=== PATIENT | female | born 1940 | race Caucasian/White ===

== ENCOUNTER 2017-04-18 20:20 | Inpatient (IN) | payer MEDICARE ==
--- NOTE | 2017-04-18 20:56 | ED PDOC ---
Lower Extremity Pain/Injury Time Seen by Provider: 04/18/17 20:55 Chief Complaint (Nursing): Lower Extremity Problem/Injury Chief Complaint (Provider): right leg pain History Per: Patient Additional Complaint(s): 76-year-old female with history of high blood pressure presents to emergency department with pain to the right hip status post trip and fall. Patient was at a [employer] dancing when she tripped and injured right hip and femur. Patient denies head injury or loss of consciousness. She denies dizziness or syncope prior to fall. Patient has been able to gingerly bear weight on affected leg since it injury occurred. She was brought here by a friend who drove her. Past Medical History Reviewed: Historical Data, Nursing Documentation, Vital Signs Vital Signs: Last Vital Signs Temp 97.0 F L 04/18/17 20:27 Pulse 74 04/18/17 20:27 Resp 16 04/18/17 20:27 BP 139/72 04/18/17 20:27 Pulse Ox 100 04/18/17 20:27 - Medical History PMH: HTN - Surgical History Surgical History: Appendectomy Other surgeries: double mastectomy, right wrist fracture repair, lung lobectomy - Family History Family History: States: No Known Family Hx - Living Arrangements Living Arrangements: With Family - Social History Current smoker - smoking cessation education provided: No Ex-Smoker (has not smoked in the last 12 months): Yes (quit in 1991) Alcohol: None Drugs: Denies - Home Medications Home Medications: Ambulatory Orders Medication Instructions Recorded Fexofenadine/Pseudoephedrine 1 tab PO DAILY 04/19/17 [Kelsea-D 24 Hour Tablet] Levothyroxine [Synthroid] 200 mcg PO DAILY 04/19/17 Olmesartan/Amlodipin/Hcthiazid 1 tab PO DAILY 04/19/17 [Tribenzor 40-10-25 mg Tablet] - Allergies Allergies/Adverse Reactions: Allergies Allergy/AdvReac Type Severity Reaction Status Date / Time No Known Allergies Allergy Verified 04/18/17 20:27 Wells Criteria for PE - Wells Criteria for Pulmonary Embolism Clinical Signs and Symptoms of DVT: No P.E is #1 Diagnosis, or Equally Likely: No Heart Rate >100: No Immobilization at least 3 days;Surgery previous 4 weeks: No Previous, objectively diagnosed PE or DVT: No Hemoptysis: No Malignancy w/treatment within 6 months, or palliative: No Total Score: 0 Review of Systems ROS Statement: Except As Marked, All Systems Reviewed And Found Negative Musculoskeletal: Positive for: Other (right hip pain s/p trip and fall) Neurological: Positive for: Other (denies dizziness or syncope prior to fall, denies head injury or LOC) Physical Exam - Reviewed Nursing Documentation Reviewed: Yes Vital Signs Reviewed: Yes - Physical Exam Appears: Positive for: Well, Non-toxic, No Acute Distress Skin: Negative for: Rash Eye Exam: Positive for: Normal appearance Neck: Positive for: Normal Cardiovascular/Chest: Positive for: Regular Rate, Rhythm Respiratory: Positive for: Normal Breath Sounds Back: Negative for: Vertebral Tenderness Extremity: Positive for: Other (Tenderness to right lateral hip and proximal femur region, full range of motion with pain, normal distal sensation right lower extremity) Neurologic/Psych: Positive for: Alert, Oriented - Laboratory Results Result Diagrams: 04/18/17 23:30 04/18/17 23:30 - ECG Interpretation Of ECG: SR 77 bpm with PAC's, reviewed by PA and ED attending O2 Sat by Pulse Oximetry: 100 Pulse Ox Interpretation: Normal - Other Rad Pelvis, right hip and femur X-Ray: Interpreted by Me, Viewed By Me X-Ray Interpretation: ? right pelvic fracture, CT ordered CT pelvis X-Ray: Read By Radiologist X-Ray Interpretation: right femoral neck fracture Bedside chest X-Ray: Interpreted by Me, Viewed By Me X-Ray Interpretation: no acute finding Medical Decision Making Medical Decision Makin76 year old with right hip pain s/p trip and fall Plan: X-ray right hip, femur and pelvis PO motrin X-ray shows ? fracture, CT pelvis ordered. CT shows right femoral neck fracture. Case was d/w ortho professional bass fisherman, Dr. Woodruff who will see patient in AM. Dr. Green hospitalist to admit patient. Patient is aware of and agrees with admission. Disposition - Clinical Impression Clinical Impression: Hip fracture, right - Patient ED Disposition Is Patient to be Admitted: Yes - Disposition Disposition Time: 01:35 Condition: FAIR - Pt Status Changed To: Hospital Disposition Of: Inpatient - Admit Certification Admit to Inpatient:: After my assessment, the patient will require hospitalization for at least two midnights. This is because of the severity of symptoms shown, intensity of services needed, and/or the medical risk in this patient being treated as an outpatient. - POA Present On Arrival: None Results - Lab Results Lab Results: 04/18/17 04/18/17 04/18/17 23:30 23:30 23:30 WBC 14.2 H RBC 4.18 Hgb 11.8 L Hct 35.7 MCV 85.3 MCH 28.1 MCHC 33.0 RDW 13.1 Plt Count 230 MPV 7.4 Neut % (Auto) 80.3 H Lymph % (Auto) 14.0 L [place] % (Auto) 5.3 Eos % (Auto) 0.1 Baso % (Auto) 0.3 Neut # 11.4 H Lymph # 2.0 [place] # 0.8 Eos # 0.0 Baso # 0.0 PT 11.2 INR 1.1 APTT 27.0 Sodium 141 Potassium 3.8 Chloride 106 Carbon Dioxide 23 Anion Gap 15 BUN 17 Creatinine 0.7 Est GFR ( Amer) > 60 Est GFR (Non-Af Amer) > 60 Random Glucose 104 Calcium 10.0 Total Bilirubin 0.6 AST 35 ALT 37 Alkaline Phosphatase 70 Total Protein 7.6 Albumin 4.2 Globulin 3.3 Albumin/Globulin Ratio 1.3 Blood Type Antibody Screen BBK History Checked 04/18/17 23:18 WBC RBC Hgb Hct MCV MCH MCHC RDW Plt Count MPV Neut % (Auto) Lymph % (Auto) [place] % (Auto) Eos % (Auto) Baso % (Auto) Neut # Lymph # [place] # Eos # Baso # PT INR APTT Sodium Potassium Chloride Carbon Dioxide Anion Gap BUN Creatinine Est GFR ( Amer) Est GFR (Non-Af Amer) Random Glucose Calcium Total Bilirubin AST ALT Alkaline Phosphatase Total Protein Albumin Globulin Albumin/Globulin Ratio Blood Type A POSITIVE Antibody Screen Negative BBK History Checked No verified bt
--- NOTE | 2017-04-18 22:48 | CT ---
EXAM: CT Pelvis Without Intravenous Contrast CLINICAL HISTORY: 76 years old, female; Injury or trauma; Fall; Initial encounter; Blunt trauma (contusions or hematomas); Right; Hip; Additional info: Fall, assess for right hip/pelvis fractures TECHNIQUE: Axial computed tomography images of the pelvis without intravenous contrast. All CT scans at this facility use one or more dose reduction techniques, viz.: automated exposure control; ma/kV adjustment per patient size (including targeted exams where dose is matched to indication; i.e. head); or iterative reconstruction technique. Coronal and sagittal reformatted images were created and reviewed. COMPARISON: No relevant prior studies available. FINDINGS: Bones/joints: Nondisplaced, mildly impacted fracture RIGHT femoral neck. Early degenerative changes of hip joints. Facet osteoarthrosis within lower lumbar spine. Partial ankylosis LEFT sacroiliac joint. No dislocation. Soft tissues: Tiny umbilical hernia containing fat. Stomach and bowel: Scattered diverticula within colon. IMPRESSION: 1. RIGHT femoral neck fracture. 2. Incidental/non-acute findings are described above.
[2017-04-18] MEDS ORDERED: Sodium Chloride 0.9% 1,000 ML IV STA (23:04)
--- NOTE | 2017-04-18 23:12 | CP.PCM.HP ---
History of Present Illness - History of Present Illness History of Present Illness: PCP: Any Butt MD Chief complaint: Fall/Right hip pain HPI: 76 years old female with hx of HTN, hypothyroidism, breast and lung Cancer s/p Radiotherapy. She was brought to the ED with pain to the right hip after she slipped and fell while dancing. No dizziness nor headache, No LOC. No nausea nor vomits, diarrhea nor urinary symptoms. She was able to bear weight on the right hip after fall. PMH: HTN; Hypothyroidism; Lung cancer; Breast cancer; PSH: Bilateral Mastectomy; Lobectomy of the lung; ORIF for fractured right wrist. SH: No illegal drug use; no Smoking; No Alcohol use; live with family FH: No known family hx Allergies: NKDA Medications: Unknown medication for HTN and for Hypothyroidism Present on Admission - Present on Admission Any Indicators Present on Admission: No History of DVT/PE: No History of Uncontrolled Diabetes: No Urinary Catheter: No Decubitus Ulcer Present: No Review of Systems - Constitutional Constitutional: absent: Anorexia, Chills, Fatigue, Fever, Headache - EENT Eyes: Requires Corrective Lenses. absent: Diplopia, Floaters, Photophobia Ears: absent: Decreased Hearing, Ear Discharge, Ear Pain, Tinnitus Nose/Mouth/Throat: absent: Epistaxis, Nasal Congestion, Sinus Pain, Sinus Pressure - Cardiovascular Cardiovascular: absent: Chest Pain, Dyspnea, Edema - Respiratory Respiratory: absent: Cough, Dyspnea, Wheezing, Chest Congestion - Gastrointestinal Gastrointestinal: absent: Constipation, Diarrhea, Nausea, Vomiting - Genitourinary Genitourinary: absent: Dysuria, Flank Pain, Hematuria, Urinary Frequency - Musculoskeletal Musculoskeletal: Arthralgias. absent: Muscle Weakness, Myalgias Additional comments: Right hip pain - Integumentary Integumentary: absent: Pruritus, Rash, Skin Ulcer, Sores, Striae, Swelling - Neurological Neurological: absent: Confusion, Dizziness, Focal Weakness, Headaches - Psychiatric Psychiatric: absent: Anxiety, Depression, Panic Attacks - Endocrine Endocrine: absent: Palpitations, Polydipsia, Polyphagia, Polyuria - Hematologic/Lymphatic Hematologic: absent: Easy Bleeding, Easy Bruising Past Patient History - Past Social History Smoking Status: Never Smoked Chewing Tobacco Use: No Cigar Use: No Alcohol: None Drugs: Denies Home Situation {Lives}: With Family - CARDIAC Hx Hypertension: Yes - PULMONARY Hx Respiratory Disorders: No - NEUROLOGICAL Hx Neurological Disorder: No - HEENT Hx HEENT Problems: No - RENAL Hx Chronic Kidney Disease: No - ENDOCRINE/METABOLIC Hx Endocrine Disorders: No - HEMATOLOGICAL/ONCOLOGICAL Hx Blood Disorders: No - INTEGUMENTARY Hx Dermatological Problems: No - MUSCULOSKELETAL/RHEUMATOLOGICAL Hx Musculoskeletal Disorders: No - GASTROINTESTINAL Hx Gastrointestinal Disorders: No - GENITOURINARY/GYNECOLOGICAL Hx Genitourinary Disorders: No - PSYCHIATRIC Hx Psychophysiologic Disorder: No Hx Substance Use: No - SURGICAL HISTORY Hx Appendectomy: Yes Hx Mastectomy: Yes (Bilateral) Hx Orthopedic Surgery: Yes (Right wrist ORIF) Other/Comment: Lobectomy due to lung cancer - ANESTHESIA Hx Anesthesia: Yes Hx Anesthesia Reactions: No Meds Allergies/Adverse Reactions: Allergies Allergy/AdvReac Type Severity Reaction Status Date / Time No Known Allergies Allergy Verified 04/18/17 20:27 Physical Exam - Constitutional Appears: No Acute Distress - Head Exam Head Exam: ATRAUMATIC, NORMAL INSPECTION, NORMOCEPHALIC - Eye Exam Eye Exam: EOMI, Normal appearance Pupil Exam: NORMAL ACCOMODATION, PERRL - ENT Exam ENT Exam: Mucous Membranes Moist, Normal Exam, Normal External Ear Exam, Normal Oropharynx - Neck Exam Neck exam: Positive for: Full Rom, Normal Inspection. Negative for: Lymphadenopathy, Tenderness - Respiratory Exam Respiratory Exam: Clear to Auscultation Bilateral. absent: Rales, Rhonchi, Wheezes - Cardiovascular Exam Cardiovascular Exam: REGULAR RHYTHM, RRR, +S1, +S2. absent: Gallop, JVD - GI/Abdominal Exam GI & Abdominal Exam: Soft. absent: Mass, Organomegaly, Tenderness - Rectal Exam Rectal Exam: Deferred - Extremities Exam Extremities exam: Positive for: normal inspection Additional comments: Pain at the anterior-lateral up0per right thigh. - Back Exam Back exam: NORMAL INSPECTION. absent: CVA tenderness (L), CVA tenderness (R) - Neurological Exam Neurological exam: Alert, CN II-XII Intact, Oriented x3, Reflexes Normal - Psychiatric Exam Psychiatric exam: Normal Affect, Normal Mood - Skin Skin Exam: Dry, Intact, Normal Color, Warm Results - Vital Signs Recent Vital Signs: Last Vital Signs Temp 97.0 F L 04/18/17 20:27 Pulse 74 04/18/17 20:27 Resp 16 04/18/17 20:27 BP 139/72 04/18/17 20:27 Pulse Ox 100 04/18/17 22:58 - Labs Result Diagrams: 04/18/17 23:30 04/18/17 23:30 - EKG Data EKG comments: NSR with PAC 77/min - Imaging and Cardiology Chest x-ray Status: Image reviewed by me Additional comment: No Infiltrate CT Pelvis Status: Report reviewed by me Additional comment: FINDINGS: Bones/joints: Nondisplaced, mildly impacted fracture RIGHT femoral neck. Early degenerative changes of hip joints. Facet osteoarthrosis within lower lumbar spine. Partial ankylosis LEFT sacroiliac joint. No dislocation. Soft tissues: Tiny umbilical hernia containing fat. Stomach and bowel: Scattered diverticula within colon. IMPRESSION: 1. RIGHT femoral neck fracture. 2. Incidental/non-acute findings are described above. Assessment & Plan - Assessment and Plan (Free Text) Assessment: #. Right Femoral neck Fracture #. leukocytosis #. Hypothyroidism #. HTN #. Diverticulosis #. osteoarthritis of lumbar spine. Plan: 76 years old female with hx of HTN, hypothyroidism, breast and lung Cancer s/p Radiotherapy. She was brought to the ED with pain to the right hip after she slipped and fell while dancing. No dizziness nor headache, No LOC. No nausea nor vomits, diarrhea nor urinary symptoms. She was able to bear weight on the right hip after fall. #. Right Femoral neck Fracture - Consult Dr Macdonald Orthopedic - NPO -Pain medication with Toradol - IV fluid with NS at 100mls/hr #. Neutrophilic leukocytosis reactive - Follow CBC #. Hypothyroidism. Patient does not remember the concentration of Levothyroxin that she takes daily. - Follow TSH #. HTN - Follow blood pressures #. Diverticulosis without diverticulitis #. osteoarthritis of lumbar spine. - Pain management #. DVT Prophylaxis with SCD #. Code Status: Full After review of this patient's laboratory, Radiological, Hemodynamic and Medical records I am clearing this patient for surgery with mild risk for cardiopulmonary events. Casimiro Green MD - Date & Time Date: 04/18/17 Time: 23:12
[2017-04-18 23:38] LABS: BASO % 0.3 % (0.0-2.0); EOS % 0.1 % (0.0-4.0); HEMATOCRIT 35.7 % (34.0-47.0); MEAN CELL VOLUME 85.3 fl (81.0-99.0); MEAN CORPUSCULAR HEMOGLOBIN 28.1 pg (27.0-31.0); MEAN PLATELET VOLUME 7.4 fl (7.2-11.7); MONO # 0.8 K/uL (0.0-0.8); MONO % 5.3 % (0.0-10.0); NEUT # 11.4 K/uL (1.8-7.0); NEUT % 80.3 % (50.0-75.0); RED CELL DISTRIBUTION WIDTH 13.1 % (11.5-14.5); WHITE BLOOD COUNT 14.2 K/uL (4.8-10.8)
[2017-04-18 23:44] LABS: ALB/GLOB RATIO 1.3 (1.0-2.1); ALKALINE PHOSPHATASE 70 U/L (38-126); ALT/SGPT 37 U/L (9-52); AST/SGOT 35 U/L (14-36); BILIRUBIN,TOTAL 0.6 mg/dl (0.2-1.3); BLOOD UREA NITROGEN 17 mg/dl (7-17); CARBON DIOXIDE 23 mmol/L (22-30); CHLORIDE 106 mmol/L (98-107); GFR AFRICAN-AMERICAN > 60; GLUCOSE,RANDOM 104 mg/dL (65-105); POTASSIUM 3.8 MMOL/L (3.6-5.0); SODIUM 141 mmol/l (132-148); TOTAL PROTEIN 7.6 G/DL (6.3-8.2)
[2017-04-19] MEDS: Sodium Chloride 0.9% 1,000 ML IV SCH ×2 (02:19→20:00)
[2017-04-19 08:58] LABS: BASO % 0.6 % (0.0-2.0); EOS % 0.6 % (0.0-4.0); HEMATOCRIT 34.7 % (34.0-47.0); LYMPH # 1.4 K/uL (1.0-4.3); LYMPH % 18.1 % (20.0-40.0); MEAN CORPUSCULAR HEMOGLOBIN 28.5 pg (27.0-31.0); MEAN CORPUSCULAR HGB CONC 33.1 g/dL (33.0-37.0); MEAN PLATELET VOLUME 7.5 fl (7.2-11.7); MONO # 0.6 K/uL (0.0-0.8); MONO % 8.1 % (0.0-10.0); NEUT # 5.5 K/uL (1.8-7.0); NEUT % 72.6 % (50.0-75.0); WHITE BLOOD COUNT 7.5 K/uL (4.8-10.8)
--- NOTE | 2017-04-19 09:31 | RAD ---
HISTORY: admit COMPARISON: No prior. FINDINGS: LUNGS: No active pulmonary disease. PLEURA: No significant pleural effusion identified, no pneumothorax apparent. CARDIOVASCULAR: Normal. OSSEOUS STRUCTURES: Minor multilevel degenerative spondylosis of the thoracic spine degenerative changes both shoulder girdles. VISUALIZED UPPER ABDOMEN: Normal. OTHER FINDINGS: None. IMPRESSION: No acute infiltrates.
--- NOTE | 2017-04-19 10:14 | CP.PCM.CON ---
History of Present Illness - History of Present Illness History of Present Illness: Ortho Consult Note - Dr. Macdonald 76 year old female patient with PMH HTN, hypothyroidism, breast and lunch cancer seen at bedside for right femoral neck fracture. Patient states she was taken to the ED by her friend after she fell while dancing. Patient admits that she was able to bear weight with assistance, however only for a few steps. Patient admits to mild pain to her right hip, well managed my pain medication. Patient denies LOC. Patient states she lives on the 4th floor of a building with no elevators and is concerned regarding period of NWB. Patient is aware she will go to the OR today for right hip surgery. NPO status confirmed. Patient denies N/V/F/D/C/SOB. No other complaints at this time. PMH: HTN; Hypothyroidism; Lung cancer; Breast cancer; PSH: Bilateral Mastectomy; Lobectomy of the lung; ORIF for fractured right wrist. SH: No illegal drug use; no Smoking; No Alcohol use; live with family FH: Noncontributory to chief complaint Meds: See med list All: NKDA Review of Systems - Review of Systems All systems: reviewed and no additional remarkable complaints except (as per HPI ) - Constitutional Constitutional: As Per HPI, Weakness. absent: Chills, Fatigue, Fever - EENT Eyes: absent: Blind Spots, Blurred Vision, Diplopia, Loss of Vision Ears: absent: Decreased Hearing, Ear Pain, Tinnitus Nose/Mouth/Throat: absent: Nose Pain, Dental Pain, Throat Swelling, Facial Pain , Neck Pain - Cardiovascular Cardiovascular: absent: Edema, Leg Edema, Leg Ulcers, Pedal Edema, Radiating Pain - Respiratory Respiratory: absent: Cough, Dyspnea - Gastrointestinal Gastrointestinal: absent: Abdominal Pain, Change in Bowel Habits, Cramping, Diarrhea, Loose Stools, Nausea - Genitourinary Genitourinary: absent: Dysuria, Flank Pain, Hematuria - Musculoskeletal Musculoskeletal: As Per HPI, Abnormal Gait, Limited Range of Motion, Stiffness. absent: Numbness, Radiating Pain into Limb, Tingling - Integumentary Integumentary: absent: Change in Pigmentation, Erythema, Non-Healing Lesions, Pruritus, Rash, Skin Pain, Unusual Bruising - Neurological Neurological: absent: Confusion, Numbness, Memory Loss, Sensory Deficit, Syncope , Vertigo, Weakness - Psychiatric Psychiatric: absent: Anxiety, Behavioral Changes, Confusion, Depression, Memory Loss, Paranoia - Endocrine Endocrine: absent: Palpitations, Polydipsia, Polyphagia, Polyuria - Hematologic/Lymphatic Hematologic: absent: Easy Bleeding, Easy Bruising Past Patient History - Past Medical History & Family History Past Medical History?: Yes - Past Social History Smoking Status: Never Smoked Chewing Tobacco Use: No Cigar Use: No Alcohol: None Drugs: Denies Home Situation {Lives}: With Family - CARDIAC Hx Hypertension: Yes - PULMONARY Hx Respiratory Disorders: No - NEUROLOGICAL Hx Neurological Disorder: No - HEENT Hx HEENT Problems: No - RENAL Hx Chronic Kidney Disease: No - ENDOCRINE/METABOLIC Hx Endocrine Disorders: No - HEMATOLOGICAL/ONCOLOGICAL Hx Blood Disorders: No - INTEGUMENTARY Hx Dermatological Problems: No - MUSCULOSKELETAL/RHEUMATOLOGICAL Hx Musculoskeletal Disorders: No - GASTROINTESTINAL Hx Gastrointestinal Disorders: No - GENITOURINARY/GYNECOLOGICAL Hx Genitourinary Disorders: No - PSYCHIATRIC Hx Psychophysiologic Disorder: No Hx Substance Use: No - SURGICAL HISTORY Hx Appendectomy: Yes Hx Mastectomy: Yes (Bilateral) Hx Orthopedic Surgery: Yes (Right wrist ORIF) Other/Comment: Lobectomy due to lung cancer - ANESTHESIA Hx Anesthesia: Yes Hx Anesthesia Reactions: No Meds Allergies/Adverse Reactions: Allergies Allergy/AdvReac Type Severity Reaction Status Date / Time No Known Allergies Allergy Verified 04/18/17 20:27 - Medications Medications: Current Medications Sodium Chloride (Sodium Chloride 0.9%) 1,000 mls @ 100 mls/hr IV .Q10H NAKIA Stop: 04/20/17 00:00 Last Admin: 04/19/17 02:19 Dose: 100 mls/hr Ketorolac Tromethamine (Toradol) 15 mg IVP Q6 PRN PRN Reason: Pain, moderate (4-7) Ketorolac Tromethamine (Toradol) 30 mg IVP Q6 PRN PRN Reason: Pain, severe (8-10) Last Admin: 04/19/17 04:25 Dose: 30 mg Physical Exam - Constitutional Appears: Well, Non-toxic, No Acute Distress - Head Exam Head Exam: ATRAUMATIC, NORMAL INSPECTION, NORMOCEPHALIC - Eye Exam Eye Exam: EOMI Pupil Exam: NORMAL ACCOMODATION, PERRL - ENT Exam ENT Exam: Mucous Membranes Moist, Normal Exam, Normal External Ear Exam - Neck Exam Neck exam: Positive for: Normal Inspection - Respiratory Exam Respiratory Exam: Clear to Auscultation Bilateral, NORMAL BREATHING PATTERN - Cardiovascular Exam Cardiovascular Exam: REGULAR RHYTHM, +S1, +S2. absent: Gallop, JVD - GI/Abdominal Exam GI & Abdominal Exam: Soft. absent: Organomegaly, Tenderness - Rectal Exam Rectal Exam: Deferred - Exam Exam: NORMAL INSPECTION. absent: Bladder Distension - Extremities Exam Additional comments: Tenderness to palpation right hip and anterolateral proximal thigh - Back Exam Back exam: NORMAL INSPECTION - Neurological Exam Neurological exam: Alert, Oriented x3 - Psychiatric Exam Psychiatric exam: Normal Affect, Normal Mood - Skin Skin Exam: Intact, Normal Color, Warm Results - Vital Signs Recent Vital Signs: Last Vital Signs Temp 98.3 F 04/19/17 07:54 Pulse 91 H 04/19/17 07:54 Resp 20 04/19/17 07:54 BP 133/73 04/19/17 07:54 Pulse Ox 95 04/19/17 07:54 - Labs Result Diagrams: 04/19/17 08:10 04/18/17 23:30 Labs: Laboratory Results - last 24 hr 04/19/17 04/19/17 08:10 08:10 WBC 7.5 RBC 4.03 Hgb 11.5 L Hct 34.7 MCV 86.0 MCH 28.5 MCHC 33.1 RDW 13.0 Plt Count 211 MPV 7.5 Neut % (Auto) 72.6 Lymph % (Auto) 18.1 L [place] % (Auto) 8.1 Eos % (Auto) 0.6 Baso % (Auto) 0.6 Neut # 5.5 Lymph # 1.4 [place] # 0.6 Eos # 0.0 Baso # 0.0 TSH 3rd Generation < 0.02 L Assessment & Plan - Assessment and Plan (Free Text) Assessment: 76 year old female patient with right femoral neck fracture secondary to mechanical fall Plan: Patient seen and evaluated at bedside Discussed with attending, Dr. Macdonald Chart, labs, vitals reviewed Pelvis CT reviewed: right femoral neck fracture NPO status confirmed Continue pain mgmt per medicine To OR today for R hip pinning Will continue to follow patient while in house
--- NOTE | 2017-04-19 11:02 | CP.PCM.PN ---
Subjective - Date & Time of Evaluation Date of Evaluation: 04/19/17 Time of Evaluation: 10:10 - Subjective Subjective: This is a 76 year old female with past medical history of hypertension, hypothyroidism, breast cancer, and lung cancer. She was out dancing last night and fell. The patient was found to have a right femoral neck fracture. She is currently NPO for surgery with Dr. Macdonald later today. She currently states that her pain is under control. She has no c/o at this time. She denies any c/p, shortness of breath, n/v/d. Objective - Vital Signs/Intake and Output Vital Signs (last 24 hours): Temp Pulse Resp BP Pulse Ox 98.3 F 91 H 20 133/73 95 04/19/17 07:54 04/19/17 07:54 04/19/17 07:54 04/19/17 07:54 04/19/17 07:54 - Medications Medications: Current Medications Home Med (Fexofenadine/Pseudoephedrine [Kelsea-D 24 Hour Tablet]) 1 tab PO DAILY NAKIA Home Med (Olmesartan/Amlodipin/Hcthiazid [Tribenzor 40-10-25 Mg Tablet]) 1 tab PO DAILY NAKIA Sodium Chloride (Sodium Chloride 0.9%) 1,000 mls @ 100 mls/hr IV .Q10H NAKIA Stop: 04/20/17 00:00 Last Admin: 04/19/17 02:19 Dose: 100 mls/hr Ketorolac Tromethamine (Toradol) 15 mg IVP Q6 PRN PRN Reason: Pain, moderate (4-7) Ketorolac Tromethamine (Toradol) 30 mg IVP Q6 PRN PRN Reason: Pain, severe (8-10) Last Admin: 04/19/17 04:25 Dose: 30 mg - Labs Labs: 04/19/17 08:10 PT 11.2 Seconds (9.8-13.1) 04/18/17 23:30 INR 1.1 (0.9-1.2) 04/18/17 23:30 APTT 27.0 Seconds (25.6-37.1) 04/18/17 23:30 - Constitutional Appears: Well, No Acute Distress - Head Exam Head Exam: ATRAUMATIC, NORMAL INSPECTION, NORMOCEPHALIC - Neck Exam Neck Exam: Normal Inspection - Respiratory Exam Respiratory Exam: Clear to Ausculation Bilateral, NORMAL BREATHING PATTERN - Cardiovascular Exam Cardiovascular Exam: REGULAR RHYTHM, +S1, +S2 - GI/Abdominal Exam GI & Abdominal Exam: Soft, Normal Bowel Sounds. absent: Tenderness - Extremities Exam Extremities Exam: Normal Capillary Refill, Normal Inspection. absent: Joint Swelling, Pedal Edema Additional comments: Tenderness to palpation of the right hip. - Skin Skin Exam: Dry, Intact, Normal Color, Warm Assessment and Plan - Assessment and Plan (Free Text) Assessment: 1) Right femoral neck fracture 2) History of hypothyroidism, now appears to have been overcorrected with Synthroid 3) Hypertension, well controlled 4) Diverticulosis 5) Osteoarthritis of the lumbar spine 6) Leukocytosis is resolved 7) Seasonal allergies Plan: - NPO status for surgery today with Dr. Macdonald - Continue pain management with Toradol PRN for pain - Continue IV maintenance fluids with NS at 100 cc/hour - Hold Synthroid - Continue DVT prophylaxis with SCDs, start anticoagulation tomorrow AM after surgery with Lovenox - Restart her home Kelsea and Tribenzor tomorrow AM after surgery - Full code status
--- NOTE | 2017-04-19 11:16 | RAD ---
PROCEDURE: Right femur dated 04/18/2017. HISTORY: trauma COMPARISON: Correlation/ comparison made with concurrent radiographs of the pelvis and right hip TECHNIQUE: AP and lateral views of the right femur performed FINDINGS: Current study reveals a subcapital fracture of the of the right femoral neck with what appears represent impaction of fragments. IMPRESSION: There is a subcapital fracture with impaction of fragments right femoral neck. Findings discussed with KARLA Rubalcava at approximately 11:15 a.m. with written down and read back verification
--- NOTE | 2017-04-19 11:18 | RAD ---
PROCEDURE: Pelvis right hip dated 04/18/2017 HISTORY: trauma COMPARISON: Comparison/correlation made with concurrent radiographs of the right femur TECHNIQUE: AP view of the pelvis and AP/ frogleg lateral views of the right hip performed FINDINGS: Re- demonstrated is a subcapital fracture right femoral neck with mild impaction of fragments right femoral head is appropriately located within the right acetabulum. Both femoral heads are appropriately located within their respective acetabula. Degenerative changes of the lumbosacral spine IMPRESSION: Subcapital fracture right femoral neck with impaction of fragments. Findings discussed with KARLA Rubalcava at approximately 11:15 a.m. with written down and read back verification
[2017-04-19] MEDS ORDERED: Propofol 10 mg/ml Inj (20 ML) ONE (14:21)
[2017-04-19] MEDS ORDERED: Neostigmine Methylsulfate 2 MG/2 ML ML IV ONE (14:22)
[2017-04-19] MEDS ORDERED: Lidocaine Hydrochloride 5 ML INJ ONE (14:22)
[2017-04-19] MEDS ORDERED: Midazolam 2 MG/2 ML VIAL ONE (14:22)
[2017-04-19] MEDS ORDERED: Lidocaine 4% (Laryng-O-Jet) Kit MM ONE (14:22)
[2017-04-19] MEDS ORDERED: Succinylcholine 200 mg/10 ml Inj IV ONE (14:22)
[2017-04-19] MEDS ORDERED: Bupivacaine HCl 0.25% PF (30 ml) Inj ONE (14:33)
[2017-04-19] MEDS ORDERED: Bupivacaine HCl 0.25% PF (10 ml) Inj ONE (14:33)
[2017-04-19] MEDS ORDERED: Lactated Ringer's 1,000 ML IV ONE (14:38)
[2017-04-19] MEDS ORDERED: Rocuronium 10 mg/ml (5 ml) ONE (15:04)
--- NOTE | 2017-04-19 15:56 | PCM.SURG1 ---
Surgeon's Initial Post Op Note - Surgeon's Notes Surgeon: Dr. Woodruff Head Trimmer: JANET HustonM PGY1 Type of Anesthesia: General Endo Anesthesia Administered By: Dr. Martin Pre-Operative Diagnosis: Right femoral neck fracture Operative Findings: See operative report. Materials: Synthes 6.5 x 75mm cannulated screwsx2; 6.5 x 80mm cannulated screw; 0 vicryl; 2-0 vicryl; cheli Post-Operative Diagnosis: Same as above Operation Performed: Right femoral neck fracure close reduction and percutaneous pinning Specimen/Specimens Removed: none Estimated Blood Loss: EBL {In ML}: 50 Blood Products Given: N/A Drains Used: No Drains Post-Op Condition: Good Date of Surgery/Procedure: 04/19/17 Time of Surgery/Procedure: 15:00
--- NOTE | 2017-04-19 16:31 | CP.PCM.PN ---
Objective - Vital Signs/Intake and Output Vital Signs (last 24 hours): Temp Pulse Resp BP Pulse Ox 98.6 F 78 20 148/72 78 L 04/19/17 12:24 04/19/17 12:24 04/19/17 12:24 04/19/17 12:24 04/19/17 12:24 Intake and Output: 04/19/17 04/19/17 06:59 18:59 Intake Total 700 Balance 700 - Medications Medications: Current Medications Amlodipine Besylate (Norvasc) 10 mg PO DAILY [facility] Hydrochlorothiazide (Hydrodiuril) 25 mg PO DAILY [facility] Sodium Chloride (Sodium Chloride 0.9%) 1,000 mls @ 100 mls/hr IV .Q10H [facility] Stop: 04/20/17 00:00 Last Admin: 04/19/17 02:19 Dose: 100 mls/hr Lactated Ringer's (Lactated Ringer's) 1,000 mls @ 100 mls/hr IV .Q10H [facility] Ketorolac Tromethamine (Toradol) 15 mg IVP Q6 PRN PRN Reason: Pain, moderate (4-7) Ketorolac Tromethamine (Toradol) 30 mg IVP Q6 PRN PRN Reason: Pain, severe (8-10) Last Admin: 04/19/17 04:25 Dose: 30 mg Losartan Potassium (Cozaar) 100 mg PO DAILY [facility] Morphine Sulfate (Morphine) 1 mg IVP Q10M PRN PRN Reason: Pain, moderate (4-7) Stop: 04/19/17 18:13 Ondansetron HCl (Zofran Inj) 4 mg IVP ONCE PRN PRN Reason: Nausea/Vomiting Stop: 04/19/17 18:13 - Labs Labs: 04/19/17 08:10 PT 11.2 Seconds (9.8-13.1) 04/18/17 23:30 INR 1.1 (0.9-1.2) 04/18/17 23:30 APTT 27.0 Seconds (25.6-37.1) 04/18/17 23:30
--- NOTE | 2017-04-19 16:53 | RAD ---
PROCEDURE: Intraoperative Fluoroscopy. HISTORY: RIGHT HIP FINDINGS: Fluoroscopic assistance was provided. Approximately 54.6 seconds fluoroscopy time utilized during this procedure. Radiation dose: 10.08 mGy. Please refer to operative report for additional details.
--- NOTE | 2017-04-19 17:40 | CP.PCM.PN ---
Subjective - Date & Time of Evaluation Date of Evaluation: 04/19/17 Time of Evaluation: 17:45 - Subjective Subjective: RIGHT FASCIA ILIACA COMPARTMENT BLOCK The procedure was explained to the patient prior to the surgery while obtaining anesthesia consent. This was for post-operative pain management. Consent was obtained after a thorough discussion with the patient regarding the benefits and possible complications of local anesthetic fascia Iliaca block. After the surgery while still under general anesthesia, patient in supine position the right lower abdomen and inguinal area was prepared aseptically with Chloraprep solution. The ultrasound transducer was then applied parallel on top of the anterior superior illiac spine and gently moved medially in a slanting position with the ttransducer sllightly pointing between the xiphisternum and umbilicus. An hour glass pattern was appreciated and the fascia Iliaca was identified. At this point, a #20 gauge Stimuple 4 inch needles was inseerted in-plane in a caudal to cephalad orientation until the needle tip is just under the fascia iliaca. One ml of 0.25% Bupivacaine was injected to separate the fascia iliaca from the iliacus muscle. After repeated negative aspiration a total of 40 ml of 0.25% Bupivacaine was given. Star-dissection was achived during this procedure of the iliacus muscle from the fascia iliaca. The needle was removed intact and sterile dressing was applied.The patient had stable vital signs and was in no apparent distress. General anesthesia stopped and patient awaken/ extubated. The patient tolerated the fascia iliaca block well with stable vital signs and subsequently transported to PACU. Objective - Vital Signs/Intake and Output Vital Signs (last 24 hours): Temp Pulse Resp BP Pulse Ox 99.2 F 84 18 136/74 95 04/19/17 16:40 04/19/17 16:55 04/19/17 16:55 04/19/17 16:55 04/19/17 16:55 Intake and Output: 04/19/17 04/19/17 06:59 18:59 Intake Total 900 Output Total 200 Balance 700 - Medications Medications: Current Medications Amlodipine Besylate (Norvasc) 10 mg PO DAILY [facility] Hydrochlorothiazide (Hydrodiuril) 25 mg PO DAILY [facility] Sodium Chloride (Sodium Chloride 0.9%) 1,000 mls @ 100 mls/hr IV .Q10H [facility] Stop: 04/20/17 00:00 Last Admin: 04/19/17 02:19 Dose: 100 mls/hr Lactated Ringer's (Lactated Ringer's) 1,000 mls @ 100 mls/hr IV .Q10H [facility] Ketorolac Tromethamine (Toradol) 15 mg IVP Q6 PRN PRN Reason: Pain, moderate (4-7) Ketorolac Tromethamine (Toradol) 30 mg IVP Q6 PRN PRN Reason: Pain, severe (8-10) Last Admin: 04/19/17 04:25 Dose: 30 mg Losartan Potassium (Cozaar) 100 mg PO DAILY [facility] Morphine Sulfate (Morphine) 1 mg IVP Q10M PRN PRN Reason: Pain, moderate (4-7) Stop: 04/19/17 18:13 Ondansetron HCl (Zofran Inj) 4 mg IVP ONCE PRN PRN Reason: Nausea/Vomiting Stop: 04/19/17 18:13 - Labs Labs: 04/19/17 08:10 PT 11.2 Seconds (9.8-13.1) 04/18/17 23:30 INR 1.1 (0.9-1.2) 04/18/17 23:30 APTT 27.0 Seconds (25.6-37.1) 04/18/17 23:30 Assessment and Plan - Assessment and Plan (Free Text) Assessment: S/P right hip percutaneous pinning. S/P right fascia iliaca compartmental block Plan: morphine prn for break through pains.
--- NOTE | 2017-04-19 18:00 | RAD ---
PROCEDURE: Right hip dated 04/19/2017 HISTORY: s/p right hip surgery COMPARISON: Comparison made with prior study 04/18/2017. TECHNIQUE: AP view of the pelvis and AP view right hip performed FINDINGS: Current study reveals interval placement 3 partially threaded compression screws reducing and an bhakta impacted subcapital fracture right femoral neck. Satisfactory alignment. IMPRESSION: Status post ORIF impacted subcapital fracture right femoral neck satisfactory alignment.
--- NOTE | 2017-04-19 20:52 | CARD ---
APPROVED REPORT EKG Measurement Heart [id number] <Conclusion> Sinus rhythm with premature atrial complexes Possible Left atrial enlargement Left ventricular hypertrophy Abnormal ECG
[2017-04-20] MEDS: Lactated Ringer's 1,000 ML IV SCH ×3 (01:58→23:37)
[2017-04-20] MEDS ORDERED: PSEUDOEPHEDRINE PO SCH (09:00)
[2017-04-20] MEDS ORDERED: OLMESARTAN PO SCH (09:00)
[2017-04-20] MEDS ORDERED: AMLODIPIN PO SCH (09:00)
[2017-04-20] MEDS ORDERED: HCTHIAZID PO SCH (09:00)
[2017-04-20] MEDS ORDERED: FEXOFENADINE PO SCH (09:00)
[2017-04-20 09:59] LABS: HEMATOCRIT 32.3 % (34.0-47.0); MEAN CELL VOLUME 85.1 fl (81.0-99.0); MEAN CORPUSCULAR HEMOGLOBIN 29.3 pg (27.0-31.0); MEAN CORPUSCULAR HGB CONC 34.4 g/dL (33.0-37.0); RED CELL DISTRIBUTION WIDTH 13.1 % (11.5-14.5)
[2017-04-20 10:10] LABS: BLOOD UREA NITROGEN 12 mg/dl (7-17); CALCIUM 8.8 mg/dL (8.4-10.2); CARBON DIOXIDE 26 mmol/L (22-30); CHLORIDE 103 mmol/L (98-107); GFR AFRICAN-AMERICAN > 60; GLUCOSE,RANDOM 136 mg/dL (65-105); POTASSIUM 3.8 MMOL/L (3.6-5.0); SODIUM 135 mmol/l (132-148)
--- NOTE | 2017-04-20 10:19 | CP.PCM.PN ---
Subjective - Date & Time of Evaluation Date of Evaluation: 04/20/17 Time of Evaluation: 10:05 - Subjective Subjective: Mrs. Mandujano is a 76 year old female with a past medical history of hypertension, hypothyroidism, breast cancer, and lung cancer. She fell on 04/18/2017 had was found to have a right femoral neck fracture. Yesterday, 04/19, she had a right hip percutaneous pinning which was successful. The patient states that she feels well this morning. She says that her pain is mild and she has not required further pain medication overnight or this morning. She has no complaints at all today. Physical therapy eval is pending for later today to assess her ambulation. She denies any c/p, sob, weakness, , numbness, or tingling, n/v/d today. Objective - Vital Signs/Intake and Output Vital Signs (last 24 hours): Temp Pulse Resp BP Pulse Ox 97.8 F 84 17 147/71 95 04/20/17 07:47 04/20/17 09:32 04/20/17 07:47 04/20/17 09:32 04/20/17 07:47 - Medications Medications: Current Medications Acetaminophen (Tylenol 325mg Tab) 650 mg PO Q6 PRN PRN Reason: Pain, Mild (1-3) Amlodipine Besylate (Norvasc) 10 mg PO DAILY [facility] Last Admin: 04/20/17 09:32 Dose: 10 mg Enoxaparin Sodium (Lovenox) 40 mg SC DAILY [facility] PRN Reason: Protocol Hydrochlorothiazide (Hydrodiuril) 25 mg PO DAILY [facility] Last Admin: 04/20/17 09:31 Dose: 25 mg Lactated Ringer's (Lactated Ringer's) 1,000 mls @ 100 mls/hr IV .Q10H [facility] Last Admin: 04/20/17 02:00 Dose: Not Given Cefazolin Sodium 1 gm/ Sodium (Chloride) 100 mls @ 100 mls/hr IVPB Q8H [facility] Stop: 04/21/17 10:00 Ketorolac Tromethamine (Toradol) 15 mg IVP Q6 PRN PRN Reason: Pain, moderate (4-7) Ketorolac Tromethamine (Toradol) 30 mg IVP Q6 PRN PRN Reason: Pain, severe (8-10) Last Admin: 04/19/17 04:25 Dose: 30 mg Losartan Potassium (Cozaar) 100 mg PO DAILY [facility] Last Admin: 04/20/17 09:31 Dose: 100 mg - Labs Labs: 04/20/17 09:50 PT 11.2 Seconds (9.8-13.1) 04/18/17 23:30 INR 1.1 (0.9-1.2) 04/18/17 23:30 APTT 27.0 Seconds (25.6-37.1) 04/18/17 23:30 - Constitutional Appears: Well, Non-toxic, No Acute Distress - Head Exam Head Exam: ATRAUMATIC, NORMAL INSPECTION, NORMOCEPHALIC - Eye Exam Eye Exam: EOMI, Normal appearance, PERRL - Neck Exam Neck Exam: Full ROM, Normal Inspection. absent: Lymphadenopathy - Respiratory Exam Respiratory Exam: Clear to Ausculation Bilateral, NORMAL BREATHING PATTERN - Cardiovascular Exam Cardiovascular Exam: REGULAR RHYTHM, +S1, +S2. absent: Murmur - GI/Abdominal Exam GI & Abdominal Exam: Soft, Normal Bowel Sounds - Extremities Exam Extremities Exam: Full ROM, Normal Capillary Refill, Normal Inspection Additional comments: 2+ pedal pulses bilaterally - Skin Skin Exam: Dry, Intact, Normal Color, Warm Assessment and Plan - Assessment and Plan (Free Text) Assessment: 1) Right femoral neck fracture, S/p right hip repair by Dr. Macdonald, POD #1 2) History of hypothyroidism, now appears to have been overcorrected with Synthroid 3) Hypertension, well controlled 4) Diverticulosis 5) Osteoarthritis of the lumbar spine 6) Leukocytosis is resolved 7) Seasonal allergies Plan: - Continue pain medication PRN. Will add Tylenol for mild pain control - Diet restarted by orthopedics - Added Lovneox 40 mg SC daily for DVT prophylaxis - Weight bearing activity as tolerated - Ancef 1 gram IVPB q 8 hours x 3, last dose tomorrow AM - Physical therapy consultation to assess ambulation, gait, balance - Continue Norvasc 10 mg po daily, Cozaar 100 mg po daily, and HCTZ 25 mg po daily for htn control - continue to hold synthroid - Estimated day of discharge 04/21 - Estimated time spent with patient, charting, and collaboration of care is 25 minutes
[2017-04-20] MEDS: Enoxaparin 40 mg Syringe SC SCH (12:04)
[2017-04-20] MEDS: ceFAZolin 1 GM in Sodium Chloride 0.9% 100 ML IVPB SCH ×2 (12:04→17:09)
--- NOTE | 2017-04-20 15:47 | CP.PCM.PN ---
Subjective - Date & Time of Evaluation Date of Evaluation: 04/20/17 Time of Evaluation: 12:45 - Subjective Subjective: Ortho Progress Note - Dr. Macdonald 76 male patient with PMHx HTN, hypothyroidism, breast cancer, lung cancer seen at bedside POD#1 right femoral neck fracture close reduction and percutaneous pinning. Patient seen resting comfortably, AAOx3 and NAD. Patient denies any acute events overnight. Patient reports mild pain to right hip today. Patient aware she needs to be evaluated by physical therapy prior to safe discharge home vs. rehab. Patient denies N/V/F/D/C/SOB/calf pain. No other complaints at this time. Objective - Vital Signs/Intake and Output Vital Signs (last 24 hours): Temp Pulse Resp BP Pulse Ox 97.8 F 84 17 147/71 95 04/20/17 07:47 04/20/17 09:32 04/20/17 07:47 04/20/17 09:32 04/20/17 07:47 - Medications Medications: Current Medications Acetaminophen (Tylenol 325mg Tab) 650 mg PO Q6 PRN PRN Reason: Pain, Mild (1-3) Amlodipine Besylate (Norvasc) 10 mg PO DAILY [facility] Last Admin: 04/20/17 09:32 Dose: 10 mg Enoxaparin Sodium (Lovenox) 40 mg SC DAILY [facility] PRN Reason: Protocol Last Admin: 04/20/17 12:04 Dose: 40 mg Hydrochlorothiazide (Hydrodiuril) 25 mg PO DAILY [facility] Last Admin: 04/20/17 09:31 Dose: 25 mg Lactated Ringer's (Lactated Ringer's) 1,000 mls @ 100 mls/hr IV .Q10H [facility] Last Admin: 04/20/17 02:00 Dose: Not Given Cefazolin Sodium 1 gm/ Sodium (Chloride) 100 mls @ 100 mls/hr IVPB Q8H [facility] Stop: 04/21/17 10:00 Last Admin: 04/20/17 12:04 Dose: 100 mls/hr Ketorolac Tromethamine (Toradol) 15 mg IVP Q6 PRN PRN Reason: Pain, moderate (4-7) Last Admin: 04/20/17 14:32 Dose: 15 mg Ketorolac Tromethamine (Toradol) 30 mg IVP Q6 PRN PRN Reason: Pain, severe (8-10) Last Admin: 04/19/17 04:25 Dose: 30 mg Losartan Potassium (Cozaar) 100 mg PO DAILY [facility] Last Admin: 04/20/17 09:31 Dose: 100 mg - Labs Labs: 04/20/17 09:50 04/20/17 09:50 PT 11.2 Seconds (9.8-13.1) 04/18/17 23:30 INR 1.1 (0.9-1.2) 04/18/17 23:30 APTT 27.0 Seconds (25.6-37.1) 04/18/17 23:30 - Constitutional Appears: Well, Non-toxic, No Acute Distress - Extremities Exam Additional comments: Dressing to RLE appears clean, dry, and intact - Neurological Exam Neurological Exam: Alert, Awake, Oriented x3 - Psychiatric Exam Psychiatric exam: Normal Affect, Normal Mood Assessment and Plan - Assessment and Plan (Free Text) Assessment: 76 year old female PMH HTN, hypothyroidism, lung cancer, breast cancer POD#1 R femoral neck close reduction and percutaneous pinning Plan: Patient seen and evaluated at bedside Discussed with attending, Dr. Macdonald Chart, vitals, labs reviewed = afebrile, WBC WNL @ 9.0 F/U with physical therapy for evaluation of WB with crutches. If patient is safe to climb stairs with the assistance of crutches, may be discharged home Patient is to follow up with Dr. Macdonald as outpatient in 1 week Will continue to follow while in house
[2017-04-20 18:36] LABS: RBC URINE 2 /hpf (0-3); URINE BILIRUBIN NEGATIVE (NEGATIVE); URINE BLOOD NEGATIVE (NEGATIVE); URINE COLOR YELLOW (YELLOW); URINE GLUCOSE (UA) NEG (Normal); URINE KETONE 20 mg/dL (NEGATIVE); URINE LEUKOCYTE ESTERASE NEG Leu/uL (Negative); URINE PROTEIN NEGATIVE (NEGATIVE); URINE UROBILINOGEN 0.2-1.0 mg/dL (0.2-1.0); WBC URINE 1 /hpf (0-5)
[2017-04-21] MEDS: ceFAZolin 1 GM in Sodium Chloride 0.9% 100 ML IVPB SCH (00:58)
[2017-04-21 07:48] VITALS: BP 159/81; PULSE 82; RESP 20; TEMP 97.6; O2SAT 93
[2017-04-21] MEDS ORDERED: Enoxaparin 40 mg Syringe SC SCH (09:00)
[2017-04-21] MEDS: Enoxaparin 40 mg Syringe SC SCH (09:21)
[2017-04-21] MEDS: Lactated Ringer's 1,000 ML IV SCH (09:35)
--- NOTE | 2017-04-21 10:53 | CP.PCM.PN ---
Subjective - Date & Time of Evaluation Date of Evaluation: 04/21/17 Time of Evaluation: 10:05 - Subjective Subjective: Ortho Progress Note - Dr. Macdonald 76 female patient with PMHx HTN, hypothyroidism, breast cancer, lung cancer seen at bedside POD#2 right femoral neck fracture close reduction and percutaneous pinning. Patient seen resting comfortably, AAOx3 and NAD. Physical therapy with patient at time of visit. Patient denies any acute events overnight. Patient reports mild pain to right hip today, decreased from yesterday. Patient denies N/V/F/D/C/SOB/calf pain. No other complaints at this time. Objective - Vital Signs/Intake and Output Vital Signs (last 24 hours): Temp Pulse Resp BP Pulse Ox 97.6 F 82 20 159/81 H 93 L 04/21/17 07:48 04/21/17 09:21 04/21/17 07:48 04/21/17 09:21 04/21/17 07:48 - Medications Medications: Current Medications Acetaminophen (Tylenol 325mg Tab) 650 mg PO Q6 PRN PRN Reason: Pain, Mild (1-3) Amlodipine Besylate (Norvasc) 10 mg PO DAILY [facility] Last Admin: 04/21/17 09:21 Dose: 10 mg Enoxaparin Sodium (Lovenox) 40 mg SC DAILY [facility] PRN Reason: Protocol Last Admin: 04/21/17 09:21 Dose: 40 mg Hydrochlorothiazide (Hydrodiuril) 25 mg PO DAILY [facility] Last Admin: 04/21/17 09:29 Dose: 25 mg Lactated Ringer's (Lactated Ringer's) 1,000 mls @ 100 mls/hr IV .Q10H [facility] Last Admin: 04/21/17 09:35 Dose: Not Given Ketorolac Tromethamine (Toradol) 15 mg IVP Q6 PRN PRN Reason: Pain, moderate (4-7) Last Admin: 04/21/17 10:35 Dose: 15 mg Ketorolac Tromethamine (Toradol) 30 mg IVP Q6 PRN PRN Reason: Pain, severe (8-10) Last Admin: 04/19/17 04:25 Dose: 30 mg Losartan Potassium (Cozaar) 100 mg PO DAILY [facility] Last Admin: 04/21/17 09:21 Dose: 100 mg - Labs Labs: 04/20/17 09:50 04/20/17 09:50 PT 11.2 Seconds (9.8-13.1) 04/18/17 23:30 INR 1.1 (0.9-1.2) 04/18/17 23:30 APTT 27.0 Seconds (25.6-37.1) 04/18/17 23:30 - Constitutional Appears: Well, Non-toxic, No Acute Distress - Extremities Exam Additional comments: Dressing to RLE appears clean/dry/intact - Neurological Exam Neurological Exam: Alert, Awake, Oriented x3 - Psychiatric Exam Psychiatric exam: Normal Affect, Normal Mood Assessment and Plan - Assessment and Plan (Free Text) Assessment: 76 year old female PMH HTN, hypothyroidism, lung cancer, breast cancer POD#2 R femoral neck close reduction and percutaneous pinning Plan: Patient seen and evaluated at bedside Discussed with attending, Dr. Macdonald Chart, vitals, labs reviewed = afebrile F/U with physical therapy if patient is safe to be discharged home vs. TCU Patient is to follow up with Dr. Macdonald as outpatient in 1 week Will continue to follow while in house
--- NOTE | 2017-04-21 14:49 | CP.PCM.DIS ---
Provider - Provider Date of Admission: 04/18/17 23:43 Attending physician: Casimiro Green Primary care physician: Dr. Daquan Agarwal Consults: ortho consult PT eval Time Spent in preparation of Discharge (in minutes): 15 Hospital Course - Lab Results Lab Results: Most Recent Lab Values WBC 9.0 K/uL (4.8-10.8) 04/20/17 09:50 RBC 3.80 Mil/uL (3.80-5.20) 04/20/17 09:50 Hgb 11.1 g/dL (12.0-16.0) L 04/20/17 09:50 Hct 32.3 % (34.0-47.0) L 04/20/17 09:50 MCV 85.1 fl (81.0-99.0) 04/20/17 09:50 MCH 29.3 pg (27.0-31.0) 04/20/17 09:50 MCHC 34.4 g/dL (33.0-37.0) 04/20/17 09:50 RDW 13.1 % (11.5-14.5) 04/20/17 09:50 Plt Count 188 K/uL (130-400) 04/20/17 09:50 MPV 7.5 fl (7.2-11.7) 04/19/17 08:10 Neut % (Auto) 72.6 % (50.0-75.0) 04/19/17 08:10 Lymph % (Auto) 18.1 % (20.0-40.0) L 04/19/17 08:10 Hale % (Auto) 8.1 % (0.0-10.0) 04/19/17 08:10 Eos % (Auto) 0.6 % (0.0-4.0) 04/19/17 08:10 Baso % (Auto) 0.6 % (0.0-2.0) 04/19/17 08:10 Neut # 5.5 K/uL (1.8-7.0) 04/19/17 08:10 Lymph # 1.4 K/uL (1.0-4.3) 04/19/17 08:10 Hale # 0.6 K/uL (0.0-0.8) 04/19/17 08:10 Eos # 0.0 K/uL (0.0-0.7) 04/19/17 08:10 Baso # 0.0 K/uL (0.0-0.2) 04/19/17 08:10 PT 11.2 Seconds (9.8-13.1) 04/18/17 23:30 INR 1.1 (0.9-1.2) 04/18/17 23:30 APTT 27.0 Seconds (25.6-37.1) 04/18/17 23:30 Sodium 135 mmol/l (132-148) 04/20/17 09:50 Potassium 3.8 MMOL/L (3.6-5.0) 04/20/17 09:50 Chloride 103 mmol/L (98-107) 04/20/17 09:50 Carbon Dioxide 26 mmol/L (22-30) 04/20/17 09:50 Anion Gap 10 (10-20) 04/20/17 09:50 BUN 12 mg/dl (7-17) 04/20/17 09:50 Creatinine 0.6 mg/dL (0.7-1.2) L 04/20/17 09:50 Est GFR ( Amer) > 60 04/20/17 09:50 Est GFR (Non-Af Amer) > 60 04/20/17 09:50 Random Glucose 136 mg/dL (65-105) H 04/20/17 09:50 Calcium 8.8 mg/dL (8.4-10.2) 04/20/17 09:50 Total Bilirubin 0.6 mg/dl (0.2-1.3) 04/18/17 23:30 AST 35 U/L (14-36) 04/18/17 23:30 ALT 37 U/L (9-52) 04/18/17 23:30 Alkaline Phosphatase 70 U/L (38-126) 04/18/17 23:30 Total Protein 7.6 G/DL (6.3-8.2) 04/18/17 23:30 Albumin 4.2 g/dL (3.5-5.0) 04/18/17 23:30 Globulin 3.3 gm/dL (2.2-3.9) 04/18/17 23:30 Albumin/Globulin Ratio 1.3 (1.0-2.1) 04/18/17 23:30 TSH 3rd Generation < 0.02 mIU/ML (0.46-4.68) L 04/19/17 08:10 Urine Color Yellow (YELLOW) 04/20/17 18:10 Urine Clarity Clear (Clear) 04/20/17 18:10 Urine pH 6.0 (5.0-8.0) 04/20/17 18:10 Ur Specific [place] 1.011 (1.003-1.030) 04/20/17 18:10 Urine Protein Negative mg/dL (NEGATIVE) 04/20/17 18:10 Urine Glucose (UA) Neg mg/dL (Normal) 04/20/17 18:10 Urine Ketones 20 mg/dL (NEGATIVE) 04/20/17 18:10 Urine Blood Negative (NEGATIVE) 04/20/17 18:10 Urine Nitrate Negative (NEGATIVE) 04/20/17 18:10 Urine Bilirubin Negative (NEGATIVE) 04/20/17 18:10 Urine Urobilinogen 0.2-1.0 mg/dL (0.2-1.0) 04/20/17 18:10 Ur Leukocyte Esterase Neg Divya/uL (Negative) 04/20/17 18:10 Urine RBC (Auto) 2 /hpf (0-3) 04/20/17 18:10 Urine Microscopic WBC 1 /hpf (0-5) 04/20/17 18:10 Blood Type A POSITIVE 04/18/17 23:18 Blood Type Confirm A POSITIVE 04/18/17 09:25 Antibody Screen Negative 04/18/17 23:18 Crossmatch See Detail 04/18/17 23:18 BBK History Checked No verified bt 04/18/17 23:18 - Hospital Course Hospital Course: 76 years old female with hx of HTN, hypothyroidism, breast and lung Cancer s/p Radiotherapy. She was brought to the ED with pain to the right hip after she slipped and fell while dancing. No dizziness nor headache, No LOC. No nausea nor vomits, diarrhea nor urinary symptoms. She was able to bear weight on the right hip after fall. Patient admitted with right femoral neck fracture. Ortho was consulted and she underwent closed reduction and percutaneous pinning. Post op patient doing. PT ambulated with patient for training with crutches and cleared her for discharge home. Discussed with ortho . Patient may go home and follow up with ortho in 1week.- Weight bearing activity as tolerated DX 1) Right femoral neck fracture, S/p right hip repair by Dr. Macdonald, POD #1 2) History of hypothyroidism, now appears to have been overcorrected with Synthroid-- hold synthroid and follow up with PMD 3) Hypertension, well controlled 4) Diverticulosis- stable 5) Osteoarthritis of the lumbar spine 6) Leukocytosis is resolved 7) Seasonal allergies Discharge Exam - Head Exam Head Exam: ATRAUMATIC, NORMAL INSPECTION, NORMOCEPHALIC - Eye Exam Eye Exam: EOMI, Normal appearance, PERRL Pupil Exam: NORMAL ACCOMODATION - ENT Exam ENT Exam: Mucous Membranes Moist, Normal Exam - Neck Exam Neck exam: Full Rom, Normal Inspection - Respiratory Exam Respiratory Exam: Clear to PA & Lateral, NORMAL BREATHING PATTERN. absent: Rales, Rhonchi, Wheezes - Cardiovascular Exam Cardiovascular Exam: REGULAR RHYTHM, RRR, +S1, +S2. absent: JVD - GI/Abdominal Exam GI & Abdominal Exam: Normal Bowel Sounds, Soft. absent: Distended, Guarding, Rebound, Tenderness - Rectal Exam Rectal Exam: Deferred - Extremities Exam Extremities exam: normal capillary refill, normal inspection, pedal pulses present Additional comments: right hip surgical incision with dressing in place - Back Exam Back exam: NORMAL INSPECTION - Neurological Exam Neurological exam: Alert, CN II-XII Intact, Oriented x3, Reflexes Normal - Psychiatric Exam Psychiatric exam: Normal Affect, Normal Mood - Skin Skin Exam: Dry, Intact, Normal Color, Warm Discharge Plan - Discharge Medications Prescriptions: Levothyroxine [Synthroid] 100 mcg PO DAILY #30 oxyCODONE/Acetaminophen [Percocet 5/325 mg Tab] 1 tab PO Q4 PRN #30 tab PRN Reason: Pain, Severe (8-10) - Follow Up Plan Condition: STABLE Disposition: HOME/ ROUTINE Patient education suggested?: Yes Instructions: Hip Fracture (GEN), Bone Densitometry (DC) Referrals: Any Butt MD [Medical Doctor] - Dung Macdonald MD [Medical Doctor] -
--- NOTE | 2017-04-22 18:22 | OP ---
PROCEDURE DATE: 04/19/2017 SURGEON: Dung Macdonald MD WOOD HACKER: Iqra Louie DPM Resident PREOPERATIVE DIAGNOSIS: Nondisplaced right hip femoral neck fracture. POSTOPERATIVE DIAGNOSIS: Nondisplaced right hip femoral neck fracture. PROCEDURES: Right hip closed reduction and percutaneous pinning of nondisplaced femoral neck fracture BLOOD LOSS: Minimal. ANESTHESIA: General. COMPLICATIONS: None. DRAINS: None. DISPOSITION: Stable to recovery room. INDICATIONS: A 76-year-old female who slipped and fell while dancing, is community ambulator and unable to walk due to pain. The patient presents to [facility] with diagnosis of nondisplaced femoral neck fracture. She was taken urgently to surgery for the above procedure. Risk of surgery were explained, included but not limited to bleeding, infection, tendon, nerve and vessel injury, instability, chronic pain, potential need for additional surgery in the future, malunion, nonunion. The patient understood the above risks and elected to proceed. DESCRIPTION OF PROCEDURE: The patient was brought to the operating room and placed supine on the traction table. After general anesthesia was given, the prophylactic antibiotics were administered. The right lower extremity was placed into a traction, which was then placed into adduction and internal rotation of the lower extremity. The right lower extremity was then prepped and draped in a standard surgical fashion. A timeout was performed. An incision was outlined over the lateral femoral neck about 5 cm in length. Lateral approach was used. Incision was made through the skin only. Dissection was carried down through the fascia layer. Hemostasis was obtained with cautery. Tensor fascia was then incised and dissection was bluntly carried down to the lateral cortex of the femur. Under fluoroscopy, a starting point for the initial wire was confirmed. This was at a medial calcar starting point on the lateral femoral cortex. The wire was advanced under fluoroscopy to the subchondral bone of the femoral head. After the placement of the wire, 2 other wires were placed superiorly in an inverted triangle configuration providing a stable construct. The appropriate length of the screws was then selected. Opening reamer was used to open the cortex of the 3 wires. Then, under image intensification, appropriate length, partially threaded compression screws were placed across the wires. All screws were tightened until good cortical purchase. The wires were then removed. The wound was copiously irrigated and the wound was closed with a 5-0 Vicryl followed by a 2-0 Vicryl followed by cheli for skin. Fluoroscopy again confirmed well aligned and good placement of both screws in center-center position with no screw penetrating articular surface of the femoral head. Taction was removed. Sterile dressing was applied. The patient tolerated the procedure well and was returned to recovery room in excellent condition. Dung Macdonald MD DELIA
== END 2017-04-21 16:20 | disposition home or self-care (01) | DRG 482 ==
LOC: H.ER 20:20 → H.ERHOLD 23:43 → H.MEDSURG1 04-19 02:02
PROVIDERS: ADMIT Internal Medicine; ATTEND Internal Medicine
PROC: 0QS634Z Reposition Right Upper Femur with Internal Fixation Device, Percutaneous Approach (ICD-10-PCS; principal; 2017-04-19 14:30)
DX: S72.011A Unspecified intracapsular fracture of right femur, initial encounter for closed fracture (principal); I10 Essential (primary) hypertension; D72.828 Other elevated white blood cell count; E03.9 Hypothyroidism, unspecified; K57.90 Diverticulosis of intestine, part unspecified, without perforation or abscess without bleeding; M47.816 Spondylosis without myelopathy or radiculopathy, lumbar region; J30.2 Other seasonal allergic rhinitis; W01.0XXA Fall on same level from slipping, tripping and stumbling without subsequent striking against object, initial encounter; Y92.89 Other specified places as the place of occurrence of the external cause; Y93.41 Activity, dancing; Z85.118 Personal history of other malignant neoplasm of bronchus and lung; Z85.3 Personal history of malignant neoplasm of breast; Z90.13 Acquired absence of bilateral breasts and nipples; Z87.891 Personal history of nicotine dependence; Z92.3 Personal history of irradiation